=== PATIENT | female | born 1975 | race Caucasian/White ===

== ENCOUNTER 2023-02-07 10:08 | Outpatient (CLI) | payer OTHER, SELFPAY | END 2023-02-07 10:09 | disposition home or self-care (01) | LOC: NFLDREF 10:09 | PROVIDERS: PCP Family Medicine; Visit Provider Registered Nurse | DX: Z01.419 Encounter for gynecological examination (general) (routine) without abnormal findings (principal); N93.9 Abnormal uterine and vaginal bleeding, unspecified | CPT/HCPCS: 84443 ==

== ENCOUNTER 2023-02-21 10:46 | Outpatient (CLI) | payer OTHER, SELFPAY ==
--- NOTE | 2023-02-21 11:00 | CRLHL7_ITS ---
For Patients: As a result of the Century Cures Act, medical imaging exams and procedure reports are released immediately into your electronic medical record. You may view this report before your referring provider. If you have questions, please contact your health care provider. INDICATION: Dysfunctional uterine bleeding. IUD placement 2 weeks ago. TECHNIQUE: Transabdominal and transvaginal scanning was performed. Transvaginal scanning was performed to optimally evaluate the endometrium and adnexa. Ovarian blood flow was evaluated with color-flow and pulsed Doppler. COMPARISON: None. FINDINGS: The uterus is normal in size and shape. The uterus measures 8.7 x 4.0 x 4.0 cm. No uterine mass is evident. The endometrial stripe is normal in thickness at roughly 8 mm. An IUD is present in the uterine cavity and appears to be properly positioned. A 2.3 cm left ovarian follicular cyst is noted. The right ovary measures 1.7 x 1.0 x 0.8 cm and left 3.7 x 3.0 x 2.3 cm. Ovarian blood flow is demonstrated with color-flow and pulsed Doppler. No adnexal mass is evident. No free fluid is demonstrated. IMPRESSION: 1. IUD properly positioned. 2. 2.3 cm left ovarian follicular cyst. Dictated by Dakotah Pratt MD @ 02/22/2023 4:00:02 PM (Electronically Signed)
== END 2023-02-21 10:47 | disposition home or self-care (01) ==
LOC: US 10:48
PROVIDERS: PCP Family Medicine; Visit Provider Registered Nurse
DX: N93.9 Abnormal uterine and vaginal bleeding, unspecified (principal); N83.202 Unspecified ovarian cyst, left side
CPT/HCPCS: 76830; 76856

== ENCOUNTER 2023-11-29 10:45 | Outpatient (RCR) | payer OTHER, SELFPAY | END 2024-03-13 12:33 | disposition home or self-care (01) | PROVIDERS: PCP Registered Nurse; Visit Provider Registered Nurse | DX: M54.50 Low back pain, unspecified (principal); M54.16 Radiculopathy, lumbar region; M79.604 Pain in right leg; M54.6 Pain in thoracic spine; Z51.89 Encounter for other specified aftercare | CPT/HCPCS: 97110; 97112; 97162; 97530 ==

== ENCOUNTER 2024-11-04 10:51 | Outpatient (CLI) | payer OTHER, SELFPAY | END 2024-11-04 10:52 | disposition home or self-care (01) | LOC: NFLDREF 10:51 | PROVIDERS: Visit Provider Registered Nurse | DX: Z13.9 Encounter for screening, unspecified (principal) | CPT/HCPCS: 80061 ==